=== PATIENT | male | born 1965 | race African-American/Black ===

== ENCOUNTER 2017-02-14 21:51 | Emergency (ER) | payer MEDICAID ==
[~2017-02-14] VITALS: Ht 182.9 cm; Wt 137.0 kg
[~2017-02-14 21:51] MED LIST: AMOX-424 PO
[2017-02-15] MEDS ORDERED: KETOROLAC 60MG/2ML VIAL IM ONE (05:30)
[2017-02-15 05:53] VITALS: BP 147/80
[2017-02-15] MEDS ORDERED: BACITRACIN ZINC OINT UDPKT TOP ONE (06:15)
[2017-02-15] MEDS ORDERED: LIDOCAINE HCL 1% 20ML VIAL (Pyxis) INJ MC ONE (06:15)
== END 2017-02-15 08:30 | disposition home or self-care (01) ==
LOC: ER 21:51
DX: L03.011 Cellulitis of right finger (principal); F17.210 Nicotine dependence, cigarettes, uncomplicated; M10.9 Gout, unspecified; F15.10 Other stimulant abuse, uncomplicated
CPT/HCPCS: 10060; 73140; 96372; 99284; J1885; J3490; Z7610

== ENCOUNTER 2018-03-02 21:48 | Emergency (ER) | payer MEDICAID ==
[~2018-03-02] VITALS: Ht 180.3 cm; Wt 136.0 kg
[2018-03-03] MEDS ORDERED: LORAZEPAM 1MG TABLET PO ONE
[2018-03-03 00:54] LABS: CHLORIDE 105 mEq/L (98-107)
[2018-03-03 01:03] LABS: BASOPHILS % 0.7 % (0.0-2.0); EOSINOPHILS % 2.6 % (0.0-5.0); HEMATOCRIT. 40.3 % (42.0-52.0); HEMOGLOBIN. 13.7 g/dL (14.0-18.0); LYMPHOCYTES % 26.4 % (20.0-50.0); MEAN CORPUSCULAR HEMOGLOBIN 29.9 pg (28.0-32.0); MEAN CORPUSCULAR VOLUME 88.2 fL (80.0-94.0); MEAN PLATELET VOLUME 8.1 fl (7.4-10.4); NEUTROPHILS % 64.3 % (40.0-76.0); PLATELET 266 x1000/uL (130-400); RED BLOOD CELL COUNT 4.57 mill/uL (4.7-6.1); RED CELL DISTRIBUTION WIDTH 13.1 % (11.6-14.6)
[2018-03-03 01:36] VITALS: BP 159/79
== END 2018-03-03 01:37 | disposition left against medical advice (07) ==
LOC: ER 21:48
DX: R07.0 Pain in throat (principal); R45.1 Restlessness and agitation; M54.30 Sciatica, unspecified side; F15.10 Other stimulant abuse, uncomplicated; F17.200 Nicotine dependence, unspecified, uncomplicated
CPT/HCPCS: 36415; 80048; 99283

== ENCOUNTER 2019-05-13 20:58 | Emergency (ER) | payer MEDICAID ==
[~2019-05-13] VITALS: Ht 182.9 cm; Wt 132.0 kg
[2019-05-13 21:33] VITALS: BP 151/84
== END 2019-05-13 23:12 | disposition home or self-care (01) ==
LOC: ER 20:58
DX: M65.342 Trigger finger, left ring finger (principal); F15.10 Other stimulant abuse, uncomplicated
CPT/HCPCS: 29125; 99283

== ENCOUNTER 2019-10-25 12:52 | Emergency (ER) | payer MEDICAID ==
[~2019-10-25] VITALS: Ht 182.9 cm; Wt 140.0 kg
[2019-10-25] MEDS ORDERED: IBUPROFEN 600MG TABLET PO STA (14:16)
[2019-10-25] MEDS ORDERED: LIDOCAINE HCL 2% JELLY 5ML TOP ONE (14:30)
[2019-10-25 15:56] VITALS: BP 110/67
[2019-10-26] MEDS ORDERED: LABETALOL HCL 20MG/4ML CARPUJECT IV ONE (11:30)
[2019-10-26] MEDS ORDERED: LABETALOL 5MG/ML SYR 20 MG/4 ML SYRINGE IV SCH (12:00)
== END 2019-10-25 15:58 | disposition home or self-care (01) ==
LOC: ER 12:52
DX: S30.842A External constriction of penis, initial encounter (principal); W49.09XA Other specified item causing external constriction, initial encounter; Y93.89 Activity, other specified; Y92.9 Unspecified place or not applicable
CPT/HCPCS: 99283; J3490